=== PATIENT | female | born 1985 | race Caucasian/White ===

== ENCOUNTER 2017-02-19 19:33 | Outpatient (CLI) | payer OTHER | END 2017-02-20 01:52 | disposition home or self-care (01) | LOC: OBT 19:33 → L-D 19:35 | DX: O60.02 Preterm labor without delivery, second trimester (principal); O30.002 Twin pregnancy, unspecified number of placenta and unspecified number of amniotic sacs, second trimester; Z3A.23 23 weeks gestation of pregnancy | CPT/HCPCS: 76817 ==

== ENCOUNTER 2017-03-25 04:22 | Inpatient (IN) | payer OTHER ==
[2017-03-25] MEDS: LACTATED RINGER'S 1,000 ML IV ×3 (05:03→18:18)
[2017-03-25 05:19] LABS: ADD MAN DIFF? NO
[2017-03-25 05:22] LABS: BASOPHIL # 0.1 10^3/ul (0.0-0.1); BASOPHILS % 0.3 % (0.0-2.0); EOSINOPHILS # 0.2 10^3/ul (0.0-0.5); EOSINOPHILS % 1.1 % (0.0-7.0); HEMATOCRIT 27.6 % (37.0-47.0); HEMOGLOBIN 9.6 g/dl (12.0-16.0); LYMPHOCYTES # 2.1 10^3/ul (0.8-2.9); MEAN CORPUSCULAR HEMOGLOBIN 33.6 pg (29.0-33.0); MEAN CORPUSCULAR HGB CONC 34.8 g/dl (32.0-37.0); MEAN CORPUSCULAR VOLUME 96.5 fl (82.0-101.0); MEAN PLATELET VOLUME 8.3 fl (7.4-10.4); MONOCYTE # 0.8 10^3/ul (0.3-0.9); MONOCYTES % 5.2 % (0.0-11.0); NEUTROPHIL # 12.6 10^3/ul (1.6-7.5); NEUTROPHILS % 79.3 % (39.0-77.0); PLATELET COUNT 321 10^3/UL (140-415); RED BLOOD COUNT 2.86 10^6/ul (4.20-5.40); RED CELL DISTRIBUTION WIDTH 12.8 % (11.5-14.5)
[2017-03-25 05:22] LABS: WHITE BLOOD COUNT 15.9 10^3/ul (4.8-10.8)
[2017-03-25 06:11] LABS: ADD UMIC YES; UR AMORPHOUS CRYSTAL FEW /HPF (NONE SEEN); UR ASCORBIC ACID 40 mg/dL (NEGATIVE); UR BACTERIA FEW /HPF (NONE SEEN); UR BILIRUBIN (Dip) NEGATIVE (NEGATIVE); UR BLOOD (Dip) NEGATIVE (NEGATIVE); UR CLARITY CLOUDY (CLEAR); UR COLOR YELLOW (YELLOW); UR GLUCOSE (Dip) NEGATIVE (NEGATIVE); UR KETONES (Dip) NEGATIVE (NEGATIVE); UR LEUKOCYTE ESTERASE (Dip) TRACE Leu/ul (NEGATIVE); UR NITRITE (Dip) NEGATIVE (NEGATIVE); UR RBC 4 /HPF (0-5); UR SPECIFIC GRAVITY (Dip) 1.017 (1.003-1.030); UR SQUAMOUS EPITHELIAL CELL FEW /HPF (FEW); UR TOTAL PROTEIN (Dip) NEGATIVE (NEGATIVE); UR UROBILINOGEN (Dip) NEGATIVE (NEGATIVE); UR WBC 4 /HPF (0-5)
[2017-03-25 06:18] LABS: ALANINE AMINOTRANSFERASE 24 IU/L (13-69); ALBUMIN 3.6 g/dl (3.3-4.9); ALBUMIN/GLOBULIN RATIO 1.09; ALKALINE PHOSPHATASE 99 IU/L (42-121); AMYLASE 101 U/L (11-123); ANION GAP 15 (8-16); ASPARTATE AMINO TRANSFERASE 23 IU/L (15-46); BILIRUBIN,INDIRECT 0.1 mg/dl (0-1.1); BILIRUBIN,TOTAL 0.1 mg/dl (0.2-1.3); BLOOD UREA NITROGEN 5 mg/dl (7-20); CALCIUM 8.9 mg/dl (8.4-10.2); CARBON DIOXIDE 19 mmol/L (21-31); CHLORIDE 109 mmol/L (97-110); CREATININE 0.45 mg/dl (0.44-1.00); GLUCOSE 85 mg/dl (70-220); LIPASE 65 U/L (23-300); POTASSIUM 3.8 mmol/L (3.5-5.1); SODIUM 139 mmol/L (135-144); TOTAL PROTEIN 6.9 g/dl (6.1-8.1)
[2017-03-25] MEDS: MAGNESIUM SULFATE 4 GM/100 ML 100 ML IV (08:32)
[2017-03-25] MEDS: BETAMET NA PHOS/AC(6 MG/ML) 5ML INJ IM (08:33)
[2017-03-25] MEDS: MAGNESIUM SULFATE 20 GM/500 ML 500 ML IV ×3 (09:01→18:25)
[2017-03-25] MEDS: ACETAMINOPHEN 325 MG TAB PO (17:57)
[2017-03-25] MEDS: FERROUS SULFATE (EC) 325 MG TAB PO (17:57)
[2017-03-25] MEDS: PRENATAL VITAMIN PO (17:58)
[2017-03-25 19:05] LABS: MAGNESIUM 5.6 mg/dl (1.7-2.5)
[2017-03-26 01:17] LABS: MAGNESIUM 5.6 mg/dl (1.7-2.5)
[2017-03-26] MEDS: ONDANSETRON 4 MG INJ IV ×2 (03:32→09:08)
[2017-03-26] MEDS: MAGNESIUM SULFATE 20 GM/500 ML 500 ML IV ×2 (04:40→16:04)
[2017-03-26 07:18] LABS: MAGNESIUM 5.5 mg/dl (1.7-2.5)
[2017-03-26] MEDS: PRENATAL VITAMIN PO (08:51)
[2017-03-26] MEDS: FERROUS SULFATE (EC) 325 MG TAB PO (08:51)
[2017-03-26] MEDS: BETAMET NA PHOS/AC(6 MG/ML) 5ML INJ IM (08:52)
[2017-03-26] MEDS: LACTATED RINGER'S 1,000 ML IV (09:03)
[2017-03-26 13:45] LABS: MAGNESIUM 5.7 mg/dl (1.7-2.5)
[2017-03-26 18:27] LABS: MAGNESIUM 5.2 mg/dl (1.7-2.5)
[2017-03-26] MEDS: AL HYDROX/MG HYDROX/SIMETH 30 ML CUP PO (21:10)
[2017-03-27] MEDS: SOD CHLORIDE 0.9% 1,000 ML IV (00:51)
[2017-03-27 01:44] LABS: MAGNESIUM 5.6 mg/dl (1.7-2.5)
[2017-03-27] MEDS: MAGNESIUM SULFATE 20 GM/500 ML 500 ML IV (02:11)
[2017-03-27] MEDS: FERROUS SULFATE (EC) 325 MG TAB PO (09:28)
[2017-03-27] MEDS: PRENATAL VITAMIN PO (09:28)
[2017-03-27] MEDS: AL HYDROX/MG HYDROX/SIMETH 30 ML CUP PO (13:47)
== END 2017-03-27 17:20 | disposition home or self-care (01) | DRG 778 ==
LOC: OBT 04:22 → PP1 03-26 18:21 → L-D 04:22 → OBT 07:21 → L-D 07:10
DX: O60.03 Preterm labor without delivery, third trimester (principal); O30.003 Twin pregnancy, unspecified number of placenta and unspecified number of amniotic sacs, third trimester; Z3A.28 28 weeks gestation of pregnancy
CPT/HCPCS: 36415; 76817; 76818; 80053; 81001; 82150; 83690; 83735; 85025; 87086; 96360; 96361

== ENCOUNTER 2017-05-04 13:27 | Outpatient (CLI) | payer OTHER | END 2017-05-04 15:29 | disposition home or self-care (01) | LOC: OBT 13:27 → L-D 13:28 → OBT 15:29 | DX: O30.003 Twin pregnancy, unspecified number of placenta and unspecified number of amniotic sacs, third trimester (principal); Z3A.33 33 weeks gestation of pregnancy | CPT/HCPCS: 76818 ==

== ENCOUNTER 2017-05-07 13:51 | Outpatient (CLI) | payer OTHER | END 2017-05-07 15:50 | disposition home or self-care (01) | LOC: OBT 13:51 → L-D 13:52 → OBT 15:50 | DX: O35.9XX0 Maternal care for (suspected) fetal abnormality and damage, unspecified, not applicable or unspecified (principal); Z3A.33 33 weeks gestation of pregnancy | CPT/HCPCS: 76818 ==

== ENCOUNTER 2017-05-17 02:04 | Inpatient (IN) | payer OTHER ==
[2017-05-17 03:20] LABS: ADD UMIC YES; UR ASCORBIC ACID NEGATIVE (NEGATIVE); UR BACTERIA FEW /HPF (NONE SEEN); UR BILIRUBIN (Dip) NEGATIVE (NEGATIVE); UR BLOOD (Dip) NEGATIVE (NEGATIVE); UR CLARITY CLEAR (CLEAR); UR COLOR YELLOW (YELLOW); UR GLUCOSE (Dip) NEGATIVE (NEGATIVE); UR KETONES (Dip) NEGATIVE (NEGATIVE); UR LEUKOCYTE ESTERASE (Dip) 2+ Leu/ul (NEGATIVE); UR NITRITE (Dip) NEGATIVE (NEGATIVE); UR RBC 1 /HPF (0-5); UR SPECIFIC GRAVITY (Dip) 1.008 (1.003-1.030); UR SQUAMOUS EPITHELIAL CELL FEW /HPF (FEW); UR TOTAL PROTEIN (Dip) NEGATIVE (NEGATIVE); UR UROBILINOGEN (Dip) NEGATIVE (NEGATIVE); UR WBC 2 /HPF (0-5)
[2017-05-17 04:07] LABS: ADD MAN DIFF? NO
[2017-05-17] MEDS: AMPICILLIN 2 GM/NS (PMX) 100 ML IVPB (04:09)
[2017-05-17] MEDS: LACTATED RINGER'S 1,000 ML IV ×3 (04:09→17:01)
[2017-05-17 04:11] LABS: WHITE BLOOD COUNT 9.5 10^3/ul (4.8-10.8)
[2017-05-17 04:11] LABS: BASOPHILS % 0.4 % (0.0-2.0); EOSINOPHILS # 0.6 10^3/ul (0.0-0.5); HEMATOCRIT 29.2 % (37.0-47.0); HEMOGLOBIN 10.4 g/dl (12.0-16.0); LYMPHOCYTES # 2.6 10^3/ul (0.8-2.9); LYMPHOCYTES % 27.6 % (15.0-51.0); MEAN CORPUSCULAR HEMOGLOBIN 33.2 pg (29.0-33.0); MEAN CORPUSCULAR HGB CONC 35.6 g/dl (32.0-37.0); MEAN CORPUSCULAR VOLUME 93.3 fl (82.0-101.0); MEAN PLATELET VOLUME 9.1 fl (7.4-10.4); MONOCYTE # 0.8 10^3/ul (0.3-0.9); MONOCYTES % 8.5 % (0.0-11.0); NEUTROPHIL # 5.3 10^3/ul (1.6-7.5); PLATELET COUNT 274 10^3/UL (140-415); RED BLOOD COUNT 3.13 10^6/ul (4.20-5.40); RED CELL DISTRIBUTION WIDTH 12.8 % (11.5-14.5)
[2017-05-17 04:31] LABS: ALANINE AMINOTRANSFERASE 19 IU/L (13-69); ALBUMIN 3.3 g/dl (3.3-4.9); ALBUMIN/GLOBULIN RATIO 0.97; ALKALINE PHOSPHATASE 160 IU/L (42-121); ANION GAP 15 (8-16); ASPARTATE AMINO TRANSFERASE 22 IU/L (15-46); BILIRUBIN,INDIRECT 0.3 mg/dl (0-1.1); BILIRUBIN,TOTAL 0.3 mg/dl (0.2-1.3); BLOOD UREA NITROGEN 7 mg/dl (7-20); CARBON DIOXIDE 21 mmol/L (21-31); CHLORIDE 110 mmol/L (97-110); CREATININE 0.58 mg/dl (0.44-1.00); GLUCOSE 81 mg/dl (70-220); POTASSIUM 3.8 mmol/L (3.5-5.1); SODIUM 142 mmol/L (135-144); TOTAL PROTEIN 6.7 g/dl (6.1-8.1)
[2017-05-17 04:52] LABS: INR 0.89; PROTIME 12.1 Sec (11.9-14.9); PT RATIO 0.9
[2017-05-17 04:53] LABS: PARTIAL THROMBOPLASTIN TIME 26.5 Sec (25.0-35.0)
[2017-05-17] MEDS: URSODIOL 300 MG CAP PO (05:13)
[2017-05-17] MEDS ORDERED: OXYTOCIN 30 UNITS/LR 500 ML BAG IV (07:00)
[2017-05-17] MEDS ORDERED: OXYTOCIN 30 UNITS/LR 500 ML IV ×2 (07:30→17:30)
[2017-05-17] MEDS ORDERED: MISOPROSTOL 200 MCG TAB PR ×2 (07:30→17:30)
[2017-05-17] MEDS ORDERED: METHYLERGONOVINE 0.2 MG INJ IM ×2 (07:30→17:30)
[2017-05-17] MEDS ORDERED: CEFAZOLIN 2 GM/50 ML (PMX) 50 ML IV (07:30)
[2017-05-17] MEDS ORDERED: CARBOPROST 250 MCG INJ IM ×2 (07:30→17:30)
[2017-05-17 09:39] LABS: HEPATITIS B SURFACE ANTIGEN NEGATIVE (NEGATIVE)
[2017-05-17] MEDS ORDERED: ONDANSETRON 4 MG INJ (10:36)
[2017-05-17] MEDS ORDERED: morphine SULFATE/PF (10 MG/10 ML) INJ (10:36)
[2017-05-17] MEDS ORDERED: OXYTOCIN 10 UNIT INJ (10:37)
[2017-05-17] MEDS ORDERED: PHENYLephrine (100 MCG/ML) 5ML SYG (10:37)
[2017-05-17] MEDS ORDERED: morphine 2 MG INJ IV (12:30)
[2017-05-17] MEDS ORDERED: NALOXONE (0.4 MG/ML) INJ IV (12:30)
[2017-05-17] MEDS ORDERED: DIPHENHYDRAMINE 50 MG INJ IV (12:30)
[2017-05-17] MEDS: OXYTOCIN 30 UNITS/LR 500 ML IV ×2 (14:09→17:22)
[2017-05-17] MEDS: KETOROLAC 30 MG INJ IV ×2 (14:18→20:56)
[2017-05-17 15:20] LABS: RAPID PLASMA REAGIN NONREACTIVE (NR)
[2017-05-17] MEDS: ONDANSETRON 4 MG INJ IV (17:21)
[2017-05-17] MEDS ORDERED: LANOLIN 7 GM TUBE TOP (17:30)
[2017-05-17] MEDS: SENNA/DOCUSATE NA (8.6MG/50MG) TAB PO (21:00)
[2017-05-18] MEDS: LACTATED RINGER'S 1,000 ML IV ×3 (04:24→12:50)
[2017-05-18] MEDS: KETOROLAC 30 MG INJ IV (04:24)
[2017-05-18] MEDS: SENNA/DOCUSATE NA (8.6MG/50MG) TAB PO ×2 (09:15→21:51)
[2017-05-18 10:57] LABS: WHITE BLOOD COUNT 16.3 10^3/ul (4.8-10.8)
[2017-05-18 10:57] LABS: ABNORMAL IP MESSAGE 1; HEMATOCRIT 18.1 % (37.0-47.0); MEAN CORPUSCULAR HGB CONC 34.8 g/dl (32.0-37.0); MEAN CORPUSCULAR VOLUME 94.8 fl (82.0-101.0); MEAN PLATELET VOLUME 8.6 fl (7.4-10.4); PLATELET COUNT 205 10^3/UL (140-415); RED BLOOD COUNT 1.91 10^6/ul (4.20-5.40)
[2017-05-18 11:15] LABS: ADD MAN DIFF? YES; HEMOGLOBIN 6.3 g/dl (12.0-16.0); POSITIVE DIFF @See below
[2017-05-18] MEDS: OXYCODONE/ACETAMINOPHEN (5/325) TAB PO ×2 (12:49→19:46)
[2017-05-18] MEDS: FOLIC ACID 1 MG TAB PO (12:49)
[2017-05-18] MEDS: FERROUS SULFATE (EC) 325 MG TAB PO ×2 (12:49→21:51)
[2017-05-18 13:07] LABS: ANISOCYTOSIS 1+ (0-0); BAND NEUTROPHILS #M 0.8 10^3/ul (0.0-0.6); BAND NEUTROPHILS % (M) 5 % (0-4); GIANT THROMBO% (M) 2 % (0-0); LYMPHOCYTES #M 1.6 10^3/ul (0.8-2.9); LYMPHOCYTES % (M) 10 % (15-51); MICROCYTOSIS 1+ (0-0); MONOCYTE #M 0.3 10^3/ul (0.3-0.9); MONOCYTES % (M) 2 % (0-11); PLATELET ESTIMATE NORMAL; POLYCHROMASIA 1+ (0-0); REACTIVE LYMPHOCYTES #M 0.3 10^3/ul (0.0-0.0); REACTIVE LYMPHOCYTES% (M) 2 % (0-0); SEG NEUT #M 13.3 10^3/ul (1.6-7.5); SEGMENTED NEUTROPHILS (M) % 81 % (39-77); SMUDGE%M 3 % (0-0)
[2017-05-18] MEDS: MULTIVITAMINS THERAPEUTIC TAB PO (18:23)
[2017-05-18] MEDS: IBUPROFEN 800 MG TAB PO ×2 (18:23→22:00)
[2017-05-19] MEDS: LACTATED RINGER'S 1,000 ML IV ×2 (01:01→09:01)
[2017-05-19] MEDS: IBUPROFEN 800 MG TAB PO ×3 (06:13→21:32)
[2017-05-19] MEDS: FERROUS SULFATE (EC) 325 MG TAB PO ×3 (09:06→20:32)
[2017-05-19] MEDS: FOLIC ACID 1 MG TAB PO (09:06)
[2017-05-19] MEDS: MULTIVITAMINS THERAPEUTIC TAB PO (09:07)
[2017-05-19] MEDS: SENNA/DOCUSATE NA (8.6MG/50MG) TAB PO ×2 (09:07→20:33)
[2017-05-19 09:20] LABS: ADD MAN DIFF? NO
[2017-05-19 09:27] LABS: WHITE BLOOD COUNT 17.5 10^3/ul (4.8-10.8)
[2017-05-19 09:27] LABS: ABNORMAL IP MESSAGE 1; BASOPHILS % 0.1 % (0.0-2.0); EOSINOPHILS # 0.5 10^3/ul (0.0-0.5); EOSINOPHILS % 2.6 % (0.0-7.0); HEMATOCRIT 19.6 % (37.0-47.0); LYMPHOCYTES # 1.9 10^3/ul (0.8-2.9); LYMPHOCYTES % 11.1 % (15.0-51.0); MEAN CORPUSCULAR HEMOGLOBIN 33.2 pg (29.0-33.0); MEAN CORPUSCULAR HGB CONC 34.2 g/dl (32.0-37.0); MEAN PLATELET VOLUME 8.9 fl (7.4-10.4); MONOCYTE # 0.9 10^3/ul (0.3-0.9); NEUTROPHILS % 80.1 % (39.0-77.0); PLATELET COUNT 268 10^3/UL (140-415); RED BLOOD COUNT 2.02 10^6/ul (4.20-5.40); RED CELL DISTRIBUTION WIDTH 13.2 % (11.5-14.5)
[2017-05-19 09:46] LABS: HEMOGLOBIN 6.7 g/dl (12.0-16.0)
[2017-05-19 09:47] LABS: PATH REVIEW? YES; POSITIVE DIFF @See below
[2017-05-19] MEDS: OXYCODONE/ACETAMINOPHEN (5/325) TAB PO (22:36)
[2017-05-20] MEDS: IBUPROFEN 800 MG TAB PO ×2 (05:57→13:41)
[2017-05-20] MEDS: DIPHTH/TET/ACEL PERTUSS (ADULT) 0.5 ML VIAL IM* (07:52)
[2017-05-20] MEDS: FOLIC ACID 1 MG TAB PO (09:41)
[2017-05-20] MEDS: MULTIVITAMINS THERAPEUTIC TAB PO (09:42)
[2017-05-20] MEDS: FERROUS SULFATE (EC) 325 MG TAB PO ×2 (09:42→13:24)
[2017-05-20] MEDS: SENNA/DOCUSATE NA (8.6MG/50MG) TAB PO (09:42)
[2017-05-20 10:05] LABS: ADD MAN DIFF? NO
[2017-05-20 10:15] LABS: WHITE BLOOD COUNT 17.5 10^3/ul (4.8-10.8)
[2017-05-20 10:15] LABS: ABNORMAL IP MESSAGE 1; BASOPHILS % 0.1 % (0.0-2.0); EOSINOPHILS # 0.8 10^3/ul (0.0-0.5); EOSINOPHILS % 4.5 % (0.0-7.0); HEMATOCRIT 19.7 % (37.0-47.0); LYMPHOCYTES # 2.7 10^3/ul (0.8-2.9); LYMPHOCYTES % 15.3 % (15.0-51.0); MEAN CORPUSCULAR HEMOGLOBIN 33.3 pg (29.0-33.0); MEAN CORPUSCULAR HGB CONC 33.5 g/dl (32.0-37.0); MEAN CORPUSCULAR VOLUME 99.5 fl (82.0-101.0); MEAN PLATELET VOLUME 8.7 fl (7.4-10.4); MONOCYTE # 1.1 10^3/ul (0.3-0.9); NEUTROPHIL # 12.7 10^3/ul (1.6-7.5); NEUTROPHILS % 72.3 % (39.0-77.0); PLATELET COUNT 294 10^3/UL (140-415); RED BLOOD COUNT 1.98 10^6/ul (4.20-5.40); RED CELL DISTRIBUTION WIDTH 13.5 % (11.5-14.5)
[2017-05-20 10:16] LABS: POSITIVE DIFF @See below
[2017-05-20 10:18] LABS: HEMOGLOBIN 6.6 g/dl (12.0-16.0)
== END 2017-05-20 20:45 | disposition home or self-care (01) | DRG 765 ==
LOC: OBT 02:04 → L-D 02:05 → OBT 07:10 → L-D 07:22 → PP1 16:21
PROC: 10D00Z1 Extraction of Products of Conception, Low, Open Approach (ICD-10-PCS; principal; 2017-05-17 11:00)
PROC: 0UB70ZZ Excision of Bilateral Fallopian Tubes, Open Approach (ICD-10-PCS; 2017-05-17 11:00)
PROC: 4A1HXCZ Monitoring of Products of Conception, Cardiac Rate, External Approach (ICD-10-PCS; 2017-05-17 11:00)
DX: O60.14X0 Preterm labor third trimester with preterm delivery third trimester, not applicable or unspecified (principal); O30.043 Twin pregnancy, dichorionic/diamniotic, third trimester; Z3A.35 35 weeks gestation of pregnancy; Z37.2 Twins, both liveborn; Z30.2 Encounter for sterilization
CPT/HCPCS: 36415; 76815; 76818; 80053; 81001; 84560; 85025; 85610; 85730; 86592; 86850; 86900; 86901; 87340; 88302; 88307; 94760; 96360; 99464

== ENCOUNTER 2017-05-23 17:50 | Emergency (ER) | payer OTHER ==
[2017-05-23 19:44] LABS: ADD UMIC YES; UR ASCORBIC ACID NEGATIVE (NEGATIVE); UR BILIRUBIN (Dip) NEGATIVE (NEGATIVE); UR BLOOD (Dip) 3+ mg/dL (NEGATIVE); UR CLARITY SLIGHTLY CLOUDY (CLEAR); UR COLOR YELLOW (YELLOW); UR GLUCOSE (Dip) NEGATIVE (NEGATIVE); UR KETONES (Dip) NEGATIVE (NEGATIVE); UR LEUKOCYTE ESTERASE (Dip) 1+ Leu/ul (NEGATIVE); UR NITRITE (Dip) NEGATIVE (NEGATIVE); UR NONSQUAMOUS EPITHELIAL CELL 1 /HPF (NONE SEEN); UR RBC 161 /HPF (0-5); UR TOTAL PROTEIN (Dip) 1+ mg/dl (NEGATIVE); UR UROBILINOGEN (Dip) NEGATIVE (NEGATIVE); UR WBC 19 /HPF (0-5)
[2017-05-23 20:25] LABS: ADD MAN DIFF? NO
[2017-05-23 20:26] LABS: BASOPHILS % 0.3 % (0.0-2.0); EOSINOPHILS # 0.9 10^3/ul (0.0-0.5); EOSINOPHILS % 6.8 % (0.0-7.0); HEMATOCRIT 22.2 % (37.0-47.0); HEMOGLOBIN 7.3 g/dl (12.0-16.0); LYMPHOCYTES % 21.6 % (15.0-51.0); MEAN CORPUSCULAR HEMOGLOBIN 33.2 pg (29.0-33.0); MEAN CORPUSCULAR HGB CONC 32.9 g/dl (32.0-37.0); MEAN CORPUSCULAR VOLUME 100.9 fl (82.0-101.0); MEAN PLATELET VOLUME 8.2 fl (7.4-10.4); MONOCYTE # 1.2 10^3/ul (0.3-0.9); MONOCYTES % 8.9 % (0.0-11.0); NEUTROPHIL # 8.2 10^3/ul (1.6-7.5); NEUTROPHILS % 58.9 % (39.0-77.0); NUCLEATED RED BLOOD CELLS% 0.2 /100WBC (0.0-0.0); PLATELET COUNT 442 10^3/UL (140-415); RED CELL DISTRIBUTION WIDTH 14.3 % (11.5-14.5)
[2017-05-23 20:26] LABS: WHITE BLOOD COUNT 13.9 10^3/ul (4.8-10.8)
[2017-05-23 20:48] LABS: ALANINE AMINOTRANSFERASE 42 IU/L (13-69); ALBUMIN 3.4 g/dl (3.3-4.9); ALBUMIN/GLOBULIN RATIO 1.03; ALKALINE PHOSPHATASE 135 IU/L (42-121); ANION GAP 12 (8-16); ASPARTATE AMINO TRANSFERASE 43 IU/L (15-46); BILIRUBIN,INDIRECT 0.8 mg/dl (0-1.1); BILIRUBIN,TOTAL 0.8 mg/dl (0.2-1.3); BLOOD UREA NITROGEN 7 mg/dl (7-20); CALCIUM 8.7 mg/dl (8.4-10.2); CARBON DIOXIDE 23 mmol/L (21-31); CHLORIDE 112 mmol/L (97-110); GLUCOSE 84 mg/dl (70-220); POTASSIUM 3.8 mmol/L (3.5-5.1); SODIUM 143 mmol/L (135-144); TOTAL PROTEIN 6.7 g/dl (6.1-8.1)
[2017-05-23] MEDS: HYDROCODONE/APAP (5/325) TAB PO (21:37)
== END 2017-05-23 21:40 | disposition home or self-care (01) ==
LOC: FTE 17:50
DX: O90.89 Other complications of the puerperium, not elsewhere classified (principal); R60.9 Edema, unspecified; O86.20 Urinary tract infection following delivery, unspecified; M25.511 Pain in right shoulder; B96.89 Other specified bacterial agents as the cause of diseases classified elsewhere
CPT/HCPCS: 36415; 80053; 81001; 85025; 93970; 99284-25